=== PATIENT | female | born 1995 | race African-American/Black ===

== ENCOUNTER 2016-12-02 22:42 | Emergency (ER) | payer MEDICAID ==
[2015-11-14 05:30] VITALS: BMI 34.8
[~2016-12-02 22:42] MED LIST: DICLOXACILLIN500 MG PO; EZFE 200200 MG PO; HYDROCODONE-APA1 TAB PO; IBUPROFEN600 MG PO; MOTRIN600 MG PEG; PERCOCET 10/3251 TA1 PO; PERCOCET 5-3251 TAB PO; PERCOCET 5/3251 TA1 PO; PRENATAL COMPLE1 TAB PO; PRENAVITE1 TAB PO
== END 2016-12-02 23:23 | disposition home or self-care (01) ==
LOC: D.ER 22:42
DX: L03.111 Cellulitis of right axilla (principal); F17.200 Nicotine dependence, unspecified, uncomplicated

== ENCOUNTER 2017-01-09 14:52 | Emergency (ER) | payer MEDICAID ==
[2015-11-14 05:30] VITALS: BMI 34.8
== END 2017-01-09 15:49 | disposition home or self-care (01) ==
LOC: D.ER 14:52
DX: R11.10 Vomiting, unspecified (principal); K52.9 Noninfective gastroenteritis and colitis, unspecified

== ENCOUNTER 2017-11-26 13:57 | Inpatient (IN) | payer MEDICAID ==
[~2017-11-26] VITALS: Ht 157.5 cm; Wt 90.7 kg
--- NOTE | ~2017-11-26 | DS ---
PATIENT:AVNI BARRIOS :89 MEDICAL RECORD: [id number] DISCHARGE SUMMARY ADMISSION DATE: 11/26/17 DISCHARGE DATE: 11/29/17 ADMISSION DATE: 11/26/2017 DISCHARGE DATE: 11/29/2017 ADMISSION DIAGNOSIS: at term. DISCHARGE DIAGNOSIS: Mother delivered at term. PROCEDURE: Vaginal delivery. ATTENDING: Radha Nieto MD HISTORY OF PRESENT ILLNESS AND INDICATION FOR HOSPITALIZATION: See the H&P in the chart. SUMMARY OF HOSPITALIZATION: The patient was admitted and delivered without incident. At the time of discharge, the patient is doing well with oghaxna-ae-vlrtlttr lochia. The patient's fundus is at the umbilicus and firm. The patient will be followed up in 6 weeks at [facility]. Standard precautions have been reviewed. TRANSINT:[id number] Voice Confirmation ID: [id number] DOCUMENT ID: [id number] RADHA NIETO MD at 1217 CC: [id number] DICTATION DATE: 01/16/18 1616 STRIP FEEDER: 01/16/18 1632 DIS IN 11/29/17 [facility] [address] [place] [address]
--- NOTE | ~2017-11-26 | OP ---
PATIENT NAME: AVNI BARRIOS MEDICAL RECORD: [id number] :89 LOCATION:[id number] ADMISSION DATE:11/26/17 SURGEON: RADHA WITT MD DATE OF OPERATION: 11/28/2017 PREDELIVERY DIAGNOSIS: at term. POSTDELIVERY DIAGNOSIS: Mother delivered at term. PROCEDURE: Vaginal delivery. ATTENDING: Radha Witt MD ANESTHETIC: Continuous lumbar epidural. FINDINGS: Viable infant, vertex presentation, Apgars 9 and 9, weight 7 pounds 11 ounces. Placenta spontaneous and intact. ESTIMATED BLOOD LOSS: 300 cc. DISPOSITION: Mother and infant recovered in the room. TRANSINT:[id number] Voice Confirmation ID: [id number] DOCUMENT ID: [id number] RADHA WITT MD at 1251 CC: [id number] DICTATION DATE: 12/09/17 1145 WATER FITNESS INSTRUCTOR: 12/09/17 1252 DIS IN 11/29/17 [id number] [place] [address]
[2017-11-26 23:48] VITALS: BP 115/58; Ht 157.5 cm; Wt 90.7 kg
[2017-11-27 00:33] LABS: HEMATOCRIT 27.9 % (36.0-48.0); HEMOGLOBIN 8.5 g/dL (12-16); MCH 20.4 pg (26.0-34.0); MCHC 30.5 g/dL (31.0-37.0); MCV 66.9 fL (80.0-100.0); PLATELET COUNT 211 10x3/uL (130-400); RBC 4.17 10x6/uL (4.00-5.40); RDW 18.1 % (11.5-14.5); WBC 11.5 10x3/uL (4.8-10.8)
[2017-11-27 01:03] LABS: APPEARANCE CLEAR (CLEAR); BILIRUBIN NEGATIVE (NEGATIVE); COLOR DK YELLOW (YELLOW); GLUCOSE NEGATIVE (NEGATIVE); KETONE SMALL mg/dL (NEGATIVE); NITRITE NEGATIVE (NEGATIVE); PROTEIN TRACE mg/dL (NEGATIVE); SPECIFIC GRAVITY 1.015 (1.005-1.020)
[2017-11-27 01:05] LABS: BACTERIA FEW /hpf (NONE SEEN); EPITHELIAL CELLS 0-5 /hpf (0-5); MUCUS >1+ /lpf (NONE SEEN); RED CELLS - URINE 0-5 /hpf (0-5); SPERMATOZOA PRESENT /hpf (NONE SEEN); WHITE CELLS - URINE 0-5 /hpf (0-5)
[2017-11-28 08:21] LABS: RAPID PLASMA REAGIN Non Reactive (Non Reactive)
[2017-11-28 19:35] VITALS: BP 114/64
[2017-11-29 07:30] VITALS: BP 122/74
[2017-11-29 12:10] VITALS: BP 111/77
== END 2017-11-29 18:00 | disposition home or self-care (01) | DRG 775 ==
LOC: D.LD 13:57 → D.WS 11-28 17:00
PROVIDERS: Obstetrics & Gynecology
PROC: 10E0XZZ Delivery of Products of Conception, External Approach (ICD-10-PCS; principal; 2017-11-26)
DX: O80 Encounter for full-term uncomplicated delivery (principal); Z3A.39 39 weeks gestation of pregnancy; Z37.0 Single live birth

== ENCOUNTER 2018-10-14 19:27 | Emergency (ER) | payer MEDICAID ==
[~2018-10-14] VITALS: Ht 157.5 cm; Wt 94.5 kg
[2018-10-14 19:52] VITALS: BP 137/83; Ht 157.5 cm; Wt 94.5 kg
== END 2018-10-14 21:40 | disposition home or self-care (01) ==
LOC: D.ER 19:27
DX: O26.891 Other specified pregnancy related conditions, first trimester (principal); Z3A.12 12 weeks gestation of pregnancy; R10.30 Lower abdominal pain, unspecified

== ENCOUNTER 2018-12-03 23:06 | Emergency (ER) | payer MEDICAID ==
[~2018-12-03] VITALS: Ht 157.5 cm; Wt 92.3 kg
[2018-12-03 23:11] VITALS: Ht 157.5 cm; Wt 92.3 kg
[2018-12-03] MEDS ORDERED: BUTALB-APAP-CA1 EACH PO (23:13)
[2018-12-03 23:46] LABS: APPEARANCE CLOUDY (CLEAR); BILIRUBIN NEGATIVE (NEGATIVE); COLOR YELLOW (YELLOW); EPITHELIAL CELLS 0-5 /hpf (0-5); GLUCOSE NEGATIVE (NEGATIVE); KETONE NEGATIVE (NEGATIVE); NITRITE POSITIVE (NEGATIVE); PROTEIN TRACE mg/dL (NEGATIVE); RED CELLS - URINE 0-5 /hpf (0-5)
[2018-12-03 23:47] LABS: BACTERIA MANY /hpf (NONE SEEN)
[2018-12-03 23:56] LABS: HEMATOCRIT 29.8 % (36.0-48.0); HEMOGLOBIN 9.7 g/dL (12-16); MCH 22.1 pg (26.0-34.0); MCHC 32.6 g/dL (31.0-37.0); MCV 67.9 fL (80.0-100.0); PLATELET COUNT 222 10x3/uL (130-400); RBC 4.39 10x6/uL (4.00-5.40); RDW 18.2 % (11.5-14.5); WBC 10.8 10x3/uL (4.8-10.8)
[2018-12-04 00:10] LABS: ALBUMIN 2.8 g/dL (3.4-5.0); ALKALINE PHOSPHATASE 45 U/L (46-116); BILIRUBIN - TOTAL 0.55 mg/dL (0.2-1.3); CALC OSMOLALITY 266 mosm/kg (275-300); CALCIUM 8.5 mg/dL (8.5-10.1); CARBON DIOXIDE 22.1 mmol/L (21.0-32.0); CHLORIDE - SERUM 102 mmol/L (98-107); CREATININE - SERUM 0.6 mg/dL (0.6-1.3); GLUCOSE 89 mg/dL (74-106); POTASSIUM - SERUM 3.4 mmol/L (3.5-5.1); PROTEIN - SERUM 7.3 g/dL (6.4-8.2); SODIUM 135 mmol/L (136-145); UREA NITROGEN 6 mg/dL (7-18); eGFR NON AFRICAN AMERICAN > 90 mL/min (90-120)
[2018-12-04 00:19] LABS: ALT (SGPT) 4 U/L (10-68)
[2018-12-04 00:39] LABS: HCG - QUANTITATIVE (MATERNAL) 10538 mIU/mL; MAGNESIUM - SERUM 1.8 mg/dL (1.8-2.4)
[2018-12-04 00:59] LABS: EOSINOPHILS 1 % (0-7); LYMPHOCYTES 11 % (15-50); MONOCYTES 8 % (2-11); NEUTROPHILS 80 % (40-80); PLATELET ESTIMATE NORMAL
[2018-12-04] MEDS ORDERED: KEFLEX500 MG PO (02:01)
[2018-12-04] MEDS ORDERED: MACROBID100 MG PO (02:01)
[2018-12-04 02:40] VITALS: BP 118/77
== END 2018-12-04 02:42 | disposition home or self-care (01) ==
LOC: D.ER 23:06
PROVIDERS: Family Medicine
DX: G43.909 Migraine, unspecified, not intractable, without status migrainosus (principal); N39.0 Urinary tract infection, site not specified; R00.0 Tachycardia, unspecified

== ENCOUNTER 2019-01-13 23:04 | Outpatient (CLI) | payer MEDICAID ==
[2018-12-03 23:11] VITALS: BMI 37.2
[~2019-01-13 23:04] MED LIST changes: +BUTALB-APAP-CA1 EACH PO; +KEFLEX500 MG PO; +MACROBID100 MG PO
[2019-01-13 23:46] LABS: UDS - AMPHET NEGATIVE QUAL (NEGATIVE); UDS - BARB NEGATIVE QUAL (NEGATIVE); UDS - BENZO NEGATIVE QUAL (NEGATIVE); UDS - COCAINE NEGATIVE QUAL (NEGATIVE); UDS - OPIATE NEGATIVE QUAL (NEGATIVE); UDS - PCP NEGATIVE QUAL (NEGATIVE); UDS - THC NEGATIVE QUAL (NEGATIVE)
[2019-01-13 23:47] LABS: APPEARANCE CLEAR (CLEAR); BILIRUBIN NEGATIVE (NEGATIVE); COLOR YELLOW (YELLOW); GLUCOSE NEGATIVE (NEGATIVE); KETONE NEGATIVE (NEGATIVE); NITRITE NEGATIVE (NEGATIVE); PROTEIN 3+ mg/dL (NEGATIVE); SPECIFIC GRAVITY 1.015 (1.005-1.020); UROBILINOGEN NORMAL (NORMAL)
[2019-01-13 23:49] LABS: BACTERIA MANY /hpf (NONE SEEN); MUCUS >1+ /lpf (NONE SEEN); RED CELLS - URINE 0-5 /hpf (0-5); WHITE CELLS - URINE 0-5 /hpf (0-5)
== END 2019-01-14 10:30 | disposition home or self-care (01) ==
LOC: D.LDO 23:04 → D.LD 23:50 → D.LDO 01-14 10:30
PROVIDERS: ATTEND Obstetrics & Gynecology
DX: O26.899 Other specified pregnancy related conditions, unspecified trimester (principal); Z3A.00 Weeks of gestation of pregnancy not specified

== ENCOUNTER 2019-04-09 14:37 | Outpatient (CLI) | payer MEDICAID ==
[2018-12-03 23:11] VITALS: BMI 37.2
[2019-04-09 15:12] LABS: BASOPHILS 0.2 % (0-2); EOSINOPHILS 0.7 % (0-7); HEMOGLOBIN 8.3 g/dL (12-16); IMMATURE GRANULOCYTES 0.5 % (0-5); LYMPHOCYTES 30.6 % (15-50); MCH 20.2 pg (26.0-34.0); MCHC 29.6 g/dL (31.0-37.0); MCV 68.1 fL (80.0-100.0); MONOCYTES 9.3 % (2-11); NEUTROPHILS 58.7 % (40-80); PLATELET COUNT 183 10x3/uL (130-400); RBC 4.11 10x6/uL (4.00-5.40); WBC 9.5 10x3/uL (4.8-10.8)
[2019-04-09 15:25] LABS: CALC OSMOLALITY 275 mosm/kg (275-300); CALCIUM 9.1 mg/dL (8.5-10.1); CARBON DIOXIDE 22.8 mmol/L (21.0-32.0); CHLORIDE - SERUM 108 mmol/L (98-107); CREATININE - SERUM 0.8 mg/dL (0.6-1.3); SODIUM 139 mmol/L (136-145); UREA NITROGEN 12 mg/dL (7-18); eGFR NON AFRICAN AMERICAN > 90 mL/min (90-120)
[2019-04-09 15:26] LABS: GLUCOSE 69 mg/dL (74-106)
[2019-04-09 15:31] LABS: ALBUMIN 2.3 g/dL (3.4-5.0); ALKALINE PHOSPHATASE 230 U/L (46-116); ALT (SGPT) 7 U/L (10-68); BILIRUBIN - DIRECT 0.18 mg/dL (0.00-0.30); BILIRUBIN - INDIRECT 0.57 mg/dL (0.00-1.00); BILIRUBIN - TOTAL 0.75 mg/dL (0.2-1.3); PROTEIN - SERUM 6.5 g/dL (6.4-8.2)
[2019-04-09 19:34] LABS: APPEARANCE CLEAR (CLEAR); BILIRUBIN NEGATIVE (NEGATIVE); COLOR YELLOW (YELLOW); GLUCOSE NEGATIVE (NEGATIVE); KETONE MODERATE mg/dL (NEGATIVE); NITRITE NEGATIVE (NEGATIVE); PROTEIN NEGATIVE (NEGATIVE); SPECIFIC GRAVITY 1.015 (1.005-1.020); UROBILINOGEN NORMAL (NORMAL)
[2019-04-09 19:37] LABS: BACTERIA FEW /hpf (NEGATIVE); MUCUS <1+ /lpf (NONE SEEN); RED CELLS - URINE 0-5 /hpf (0-5); WHITE CELLS - URINE 0-5 /hpf (NEGATIVE)
[2019-04-09 19:39] LABS: UDS - AMPHET NEGATIVE QUAL (NEGATIVE); UDS - BARB NEGATIVE QUAL (NEGATIVE); UDS - BENZO NEGATIVE QUAL (NEGATIVE); UDS - COCAINE NEGATIVE QUAL (NEGATIVE); UDS - OPIATE NEGATIVE QUAL (NEGATIVE); UDS - PCP NEGATIVE QUAL (NEGATIVE); UDS - THC NEGATIVE QUAL (NEGATIVE)
== END 2019-04-10 09:30 | disposition home or self-care (01) ==
LOC: D.LDO 14:37 → D.LD 22:17 → D.LDO 04-10 09:30
PROVIDERS: Student in an Organized Health Care Education/Training Program; ATTEND Obstetrics & Gynecology
DX: O35.9XX0 Maternal care for (suspected) fetal abnormality and damage, unspecified, not applicable or unspecified (principal)

== ENCOUNTER → 2019-04-17 12:01 | Outpatient (CLI) | payer MEDICAID ==
[2018-12-03 23:11] VITALS: BMI 37.2
[2019-04-17 13:52] LABS: APPEARANCE CLOUDY (CLEAR); BILIRUBIN NEGATIVE (NEGATIVE); COLOR YELLOW (YELLOW); GLUCOSE NEGATIVE (NEGATIVE); KETONE NEGATIVE (NEGATIVE); NITRITE NEGATIVE (NEGATIVE); PROTEIN TRACE mg/dL (NEGATIVE); RED CELLS - URINE 0-5 /hpf (0-5); SPECIFIC GRAVITY 1.015 (1.005-1.020)
[2019-04-17 13:53] LABS: BACTERIA MANY /hpf (NEGATIVE); MUCUS >1+ /lpf (NONE SEEN)
== END | disposition home or self-care (01) ==
LOC: D.LDO 12:01
PROVIDERS: ATTEND Obstetrics & Gynecology
DX: O26.90 Pregnancy related conditions, unspecified, unspecified trimester (principal)

== ENCOUNTER 2019-04-17 14:12 | Inpatient (IN) | payer MEDICAID ==
[~2019-04-17] VITALS: Ht 157.5 cm; Wt 92.5 kg
[2019-04-17 14:27] VITALS: BP 128/89; Ht 157.5 cm; Wt 92.5 kg
[2019-04-17 14:53] LABS: HEMATOCRIT 27.6 % (36.0-48.0); HEMOGLOBIN 8.2 g/dL (12-16); MCH 20.1 pg (26.0-34.0); MCHC 29.7 g/dL (31.0-37.0); MCV 67.6 fL (80.0-100.0); PLATELET COUNT 199 10x3/uL (130-400); RBC 4.08 10x6/uL (4.00-5.40); WBC 11.9 10x3/uL (4.8-10.8)
[2019-04-17 19:16] VITALS: BP 139/88
--- NOTE | 2019-04-17 20:37 | NUR ---
REFUSES AMBIEN. C/O ABD CRAMPING INTERMITTENTLY 5-10/06, SCHEDULED TYLENOL GIVEN AND PRN TORADOL PER ORDER AND PT REQUEST. INFANT RESTING IN OPEN CRIB AT BEDSIDE. WARM BLANKETS PROVIDED PER PT REQUEST. DENIES ADDITIONAL NEEDS. ABLE TO PURPOSEFULLY MOVE LLE FREELY, REQUIRES EFFORT TO MOVE RLE. STATES THAT BLE FEEL HEAVY. DENIES NEED TO VOID. FUNDUS U2 WITH SMALL AMT RUBRA LOCHIA, NO CLOTS NOTED. BED IN LOW POSITION WITH SRUP X2. CALL LIGHT AND PHONE WITHIN REACH. INSTRUCTED TO CALL USING CALL LIGHT BEFORE GETTING OOB, VERBALIZES UNDERDSTANDING.
--- NOTE | 2019-04-17 21:10 | NUR ---
EMMY DUMONT RN TO BEDSIDE.
--- NOTE | 2019-04-17 21:25 | NUR ---
PAIN REASSESSMENT COMPLETED, 2-07/06. DENIES NEED FOR ADDITIONAL INTERVENTION. REPORTS GAINING FEELING TO BLE "A LITTLE MORE." ICE WATER PROVIDED. EATING MEAL BROUGHT TO HER BY FAMILY MEMBER. INFANT RESTING QUIETLY IN OPEN CRIB AT BEDSIDE. BED IN LOW POSITION WITH SRUP X2. CALL LIGHT AND PHONE WITHIN REACH.
--- NOTE | 2019-04-17 22:10 | NUR ---
FULL ROM NOTED TO BLE. PT REPORTS URGE TO VOID. NONSKID SOCKS PROVIDED. STANDBY ASSIST TO BATHROOM. STEADY GAIT NOTED. VOIDED 600ML IN HAT. INSTRUCTED ON PERICARE WITH UNDERSTANDING DEMONSTRATED. COMPLAINS OF INCREASED CRAMPING, EXPLAINED THAT DISTENDED BLADDER CAN CAUSE INCREASED PAIN, ENCOURAGED TO VOID, WILL FOLLOWUP IN 20-30 MINUTES. REPORT TO MD OF INCREASED PAIN. ASSISTED WITH PUTTING BRA ON PER PT REQUEST. GOWN CHANGED. THANH PADS AND PANTIES PROVIDED. SMALL AMOUNT RUBRA LOCA NOTED ON DISCARDED THANH PAD. DENIES DIZZINESS.
--- NOTE | 2019-04-17 22:15 | NUR ---
AMBULATORY TO ROOM 1278 FOR CONTINUED CARE. ORIENTED TO ROOM. POC DISCUSSED. VERBALIZES UNDERSTANDING. SHIFT ASSESSMENT PER FLOWSHEET. REPORTS CRAMPING WAS "BETTER" SINCE VOIDING. LINENS PROVIDED FOR VISITOR. ICE WATER PROVIDED. DENIES ADDITIONAL NEEDS. BED IN LOW POSITION. SIDE RAILS UP X2. CALL LIGHT AND TELEPHONE WITHIN REACH.
--- NOTE | 2019-04-17 22:40 | NUR ---
DR. NIETO CALLS UNIT. REPORT GIVEN REGARDING PT C/O INCREASED CRAMPING PRIOR TO VOIDING BUT REPORTING THAT CRAMPING RELIEVED FOLLOWING VOIDING. ORDERS REC'D FOR ONE TIME DOSE OF 50 MG PO DEMEROL IF PT EXPERIENCES INCREASED PAIN WITH CRAMPING AGAIN PRN.
[2019-04-18 00:02] VITALS: BP 129/79
--- NOTE | 2019-04-18 00:02 | NUR ---
RN TO BEDSIDE FOR ROUNDS. PT REPORTS THAT CRAMPING HAS INCREASED AGAIN AND THAT SHE VOIDED APPROXIMATELY 15 MINUTES AND HAS HAD NO RELIEF. FUNDUS FIRM, MIDLINE AND U2 WITH SMALL AMT RUBRA LOCHIA, NO CLOTS NOTED. VSS. DEMEROL GIVEN PER ONE TIME ORDER. PT FOUND WITH EYES CLOSED WITH ON CHEST, EASILY AROUSED TO VOICE, INSTRUCTED ON SAFETY, INFANT TO NBN PER PT REQUEST. BED IN LOW POSITION WITH SRUP X2. CALL LIGHT AND PHONE WITHIN REACH. WILL CONTINUE TO MONITOR. ICE WATER PROVIDED.
--- NOTE | 2019-04-18 00:51 | NUR ---
LAYING ON RIGHT SIDE RESTING WITH EYES CLOSED, RESP REGULAR AND UNLABORED, NO S/S OF DISTRESS NOTED. BED IN LOW POSITION WITH SRUP X2. CALL LIGHT AND PHONE WITHIN REACH. WILL CONTINUE TO MONITOR. FRIEND RESTING ON COUCH AT BEDSIDE. IN NBN. WILL CONTINUE TO MONITOR.
--- NOTE | 2019-04-18 03:07 | NUR ---
PAIN REASSESSMENT COMPLETED, RESTING QUIETLY IN SEMI-FOWLERS POSITION WITH EYES CLOSED. RESP REGULAR AND UNLABORED, NO S/S OF DISTRESS NOTED. BED IN LOW POSITION WITH SRUPX2. CALL LIGHT AND PHONE WITHIN REACH. WILL CONTINUE TO MONITOR. REMAINS IN NBN.
[2019-04-18 04:38] VITALS: BP 135/76
--- NOTE | 2019-04-18 04:38 | NUR ---
VSS. PT STATES PAIN IS 5/10, PT STATES PAIN FEELS CRAMP LIKE. FUNDUS IS FIRM, MIDLINE, U2, SCANT RUBRA BLEEDING, NO CLOTS NOTED. PT STATES ALL HER NEEDS HAVE BEEN MET AT THIS TIME. BED AT LOWEST POSITION, SIDE RAILS UP X2, TELEPHONE AND CALL LIGHT WITHIN REACH.
[2019-04-18 06:47] LABS: BASOPHILS 0.1 % (0-2); EOSINOPHILS 0.5 % (0-7); HEMATOCRIT 25.5 % (36.0-48.0); HEMOGLOBIN 7.6 g/dL (12-16); IMMATURE GRANULOCYTES 0.3 % (0-5); LYMPHOCYTES 29.1 % (15-50); MCH 20.1 pg (26.0-34.0); MCHC 29.8 g/dL (31.0-37.0); MCV 67.5 fL (80.0-100.0); MONOCYTES 9.7 % (2-11); NEUTROPHILS 60.3 % (40-80); PLATELET COUNT 184 10x3/uL (130-400); RBC 3.78 10x6/uL (4.00-5.40); RDW 18.2 % (11.5-14.5)
[2019-04-18 06:52] LABS: WBC 15.4 10x3/uL (4.8-10.8)
[2019-04-18 07:12] LABS: RAPID PLASMA REAGIN Non Reactive (Non Reactive)
[2019-04-18 07:20] VITALS: BP 125/78
--- NOTE | 2019-04-18 07:20 | NUR ---
AM ASSESSMENT COMPLETED. PT DENIES PAIN AT THIS TIME BUT STATES THE TORADOL DOES NOT HELP HER PAIN WHEN GIVEN. DISCUSSED PLAN OF CARE, EXPECTATIONS , PP CARE, AMBULATION IN HALLS, KEEPING BLADDER EMPTY TO DECREASE CRAMPING. DENIES PASSING CLOTS AT THIS TIME, RESP EVEN AND UNLABORED, LUNGS CTAB, HEART RRR, ABD SOFT, FUNDUS FIRM AT U/1 AND MIDLINE, LOCHIA RUBRA LIGHT TO MODERATE AMOUNT, VOIDING WITHOUT DIFFICULTY, REPORTS FLATUS, NO BM YET. PRO FREELY, NEGATIVE FREDERICK'S SIGN B LE. VSS, AFEBRILE, STATES UNDERSTANDING OF ALL INSTRUCTIONS PROVIDED. CALL LIGHT IN EASY REACH, BED IN LOW POSITION, BED BRAKES LOCKED, SIDE RAILS UP X2. WILL MONITOR.
--- NOTE | 2019-04-18 08:05 | NUR ---
PT TO NURSING DESK REQUESTS DIFFERENT BREAKFAST ITEMS, DIETARY REQUEST INPUT AND CALLED TO NOTIFY DIETARY STAFF OF NEW ORDER. PT WITH NAD NOTED AT THIS TIME, DENIES OTHER NEEDS PRESENTLY. WILL MONITOR.
--- NOTE | 2019-04-18 09:17 | NUR ---
ROUNDS COMPLETED, SODA PROVIDED UPON REQUEST, SIGNIFICANT OTHER TO PT ROOM, NAD NOTED, WILL MONITOR.
--- NOTE | 2019-04-18 10:14 | NUR ---
ROUNDS COMPLETED, SCHEDULED TYLENOL GIVEN WITH C/O PAIN AT 4-5 ON NUMERIC PAIN SCALE, STATES "I'M JUST CRAMPING A LOT", FUNDUS FIRM AT U/1 AND MIDLINE. VOIDING WITHOUT DIFFICULTY, BONDING WELL WITH INFANT. CALL LIGHT IN EASY REACH, CUP OF ICE WATER PROVIDED UPON REQUEST, NO OTHER NEEDS VOICED AT THIS TIME, CONTINUE TO MONITOR.
--- NOTE | 2019-04-18 11:00 | NUR ---
pain reassessment completed, pt reports still having some cramping 2-3 on pain scale, reviewed non-pharmacologic pain management strategies. states understanding of all information provided. will monitor.
--- NOTE | 2019-04-18 12:05 | NUR ---
lunch tray provided by dietary staff, family to pt room, cup of water provided upon request, denies other needs at this time, will monitor.
--- NOTE | 2019-04-18 13:30 | NUR ---
spoke with dr sheppard on telephone as pt requesting depo-provera injection prior to discharge, order received, noted , and relayed to pt who states understanding. denies needs at this time. call light in easy reach. will monitor.
--- NOTE | 2019-04-18 14:25 | NUR ---
rounds completed, denies needs or concerns, nad noted. will monitor.
--- NOTE | 2019-04-18 15:17 | NUR ---
pt c/o abdominal cramping, requests prn med; same provided. cup of ice water provided, reviewed plan of care for this pm, ambulatory in room, voiding without difficulty, denies passing clots or excessive lochia at this time, performs self-pericare per md orders after each void. will monitor.
--- NOTE | 2019-04-18 16:18 | NUR ---
scheduled acetaminophen given with sips water. discharge instructions reviewed with pt, handouts provided for referral after discharge, pt states understanding of all information provided, call light in easy reach, no other needs voiced at present. will monitor.
--- NOTE | 2019-04-18 17:32 | NUR ---
ROUNDS COMPLETED, NAD NOTED, RESP EVEN AND UNLABORED. NO NEEDS VOICED AT THIS TIME, DINNER TRAY AT [facility]. WILL MONITOR.
--- NOTE | 2019-04-18 18:25 | NUR ---
ROUNDS COMPLETED, CUP OF ICE WATER PROVIDED UPON REQUEST, DINNER TRAY REMOVED FROM ROOM. NO OTHER NEEDS VOICED AT THIS TIME, NAD NOTED. CONTINUE TO MONITOR.
--- NOTE | 2019-04-18 19:00 | NUR ---
PT DISCHARGED TO HOME WITH TO PRIVATE AUTO WITH ALL PERSONAL BELONGINGS, PT IN STABLE CONDITION, NAD NOTED.
== END 2019-04-18 19:00 | disposition home or self-care (01) | DRG 807 ==
LOC: D.LD 14:12
PROVIDERS: ADMIT Obstetrics & Gynecology; ATTEND Obstetrics & Gynecology
PROC: 10E0XZZ Delivery of Products of Conception, External Approach (ICD-10-PCS; principal; 2019-04-17)
DX: O76 Abnormality in fetal heart rate and rhythm complicating labor and delivery (principal); Z37.0 Single live birth; Z3A.38 38 weeks gestation of pregnancy